=== PATIENT | male | born 1995 | race Caucasian/White ===

== ENCOUNTER 2024-12-09 11:54 | Emergency (ER) | payer SELFPAY ==
[2024-12-09 12:00] VITALS: BP 164/113
[2024-12-09 12:26] VITALS: BMI 33.8
[2024-12-09 12:31] LABS: Hematocrit 45.5 % (39.0-52.0); Hemoglobin 15.7 g/dL (13.0-18.0); Mean Corp Hgb Conc. 34.5 g/dL (33.0-37.0); Mean Corpuscular Volume 83.9 fL (80.0-94.0); Nucleated Red Blood Cells % 0 % (-); Platelet Count 223 10^3/uL (130-400); Red Cell Dist. Width 13.0 % (11.5-14.5)
[2024-12-09 13:00] VITALS: BP 145/87
[2024-12-09 13:41] LABS: Blood Urea Nitrogen 17 mg/dl (9-20); Calcium 8.8 mg/dl (8.4-10.2); Carbon Dioxide 27 mmol/L (22-30); Chloride 107 mmol/L (98-107); Estimated Creatinine Clearance > 125 ml/min; Glucose 88 mg/dl (70-99); Sodium 138 mmol/L (135-145); eGFR > 60.00
[2024-12-09 13:48] LABS: Troponin I < 0.012 ng/ml
[2024-12-09 13:55] LABS: D-Dimer 0.34 ug/mlFEU (0.00-0.50)
--- NOTE | 2024-12-09 14:36 | ED.GENMED ---
History of Present Illness
General
Chief Complaint: Chest Pain
Time Seen by Provider: 12/09/24 12:34
History of Present Illness
History of Present Illness:
SEE mdm
Phy Exam
Physical Exam
Physical Exam:
see MDM
Scores
Heart Score for Chest Pain Patients
STEMI patient?: No
History: Slightly or Non-Suspicious
ECG: Normal (NSR no st elevation/depression, no t wave inv)
Age: </= 45 years
Risk Factors: No Risk Factors
Troponin: </= Normal Limit
Heart Score for Chest Pain Patients: 0
Heart Score Risk: 2.5% MACE over next 6 weeks
Course
Orders/Labs/Results
Orders:
Orders
12/09/24 11:55
Electrocardiogram (*1) Urgent
Reason for Study: Chest Pain
EKG- Treatment ONCE
12/09/24 12:01
CR Chest - 2 Views Urgent
Comment:
Reason For Exam: cough
12/09/24 12:24
IV Insert/Care/Rem.- Treatment PRN
Pulse Ox/spot Check [RESP] Urgent
Quantity: 1
Special Instructions: ON ROOM AIR
12/09/24 12:25
Complete Blood Count/With Diff Urgent
12/09/24 13:15
Basic Metabolic Panel Urgent
Troponin I Urgent
12/09/24 13:35
D-Dimer Urgent
Abnormal Lab Results
12/09/24
12:25
Immature Gran % 0.6 H %
(0-0.5)
12/09/24 12:25
12/09/24 13:15
Vital Signs
Initial and Last Documented VS:
Initial Vital Signs
Temp Pulse Resp BP Pulse Ox
36.5 C 99 17 164/113 99
12/09/24 12:00 12/09/24 12:00 12/09/24 12:00 12/09/24 12:00 12/09/24 12:00
Last Documented Vital Signs
Temp Pulse Resp BP Pulse Ox
36.5 C 103 21 145/87 99
12/09/24 12:00 12/09/24 14:00 12/09/24 14:00 12/09/24 13:00 12/09/24 12:00
MDM/Problems Addressed
Differential Diagnosis Includes:
see MDM
MDM/Problems Addressed:
Note:
CHIEF COMPLAINT(S)
Chest pain and associated symptoms.
HISTORY OF PRESENT ILLNESS
The patient is a 29-year-old male who presents with chest pain persisting daily for the past three to four weeks. He describes the pain as sharp, sometimes located on the left side, and occasionally accompanied by a sensation of palpitations. He
also reported experiencing shortness of breath, particularly noticeable the previous night. The chest pain does not appear to be related to specific activities but is described as uncomfortable and worrisome. Additionally, the patient mentions pain
radiating down his arms occasionally. He reports a history of yellow sputum production and a chronic cough. Activities such as deep breathing do seem to exacerbate the pain. He denies recent long-duration travel or flights. His family history is
non-contributory for heart disease.
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 He consumes alcohol only on weekends and denies smoking cigarettes, vaping, marijuana, or cocaine use. Despite not currently
presenting symptoms suggestive of a heart attack or pulmonary embolism, he expresses concern due to the prolonged nature of his symptoms, prompting his visit for evaluation and reassurance.
PAST MEDICAL AND SURIGICAL HISTORY
None documented in the conversation.
CHRONIC MEDICAL CONDITIONS SIGNIFICANTLY AFFECTING CARE
None documented in the conversation.
SOCIAL DETERMINANTS AFFECTING HEALTH
The patient reports engaging in stressful work situations but does not directly attribute his symptoms to stress.
REVIEW OF SYSTEMS
- Cardiovascular: Chest pain described as sharp, sensation of palpitations, arm pain.
- Respiratory: Shortness of breath, chronic cough with yellow sputum.
- Gastrointestinal: The potential mention of acid reflux but unclear correlation to symptoms.
PHYSICAL EXAM
Nursing notes reviewed and vital signs reviewed.
GENERAL: Alert , in no apparent distress, comfortable
EYE: pupils equal and reactive
NECK: Supple
ENT: o/p clr, mmm.
CARDIAC: Regular rate and rhythm .
No chest wall tenderness
LUNGS: Clear breath sounds bilaterally, no acute respiratory distress, no wheezes/rales/rhonchi
ABDOMEN: Soft, without focal tenderness, no r/g, no cvat, normal bowel sounds
NEUROLOGICAL: Alert and oriented, no focal neuro deficits
SKIN: Warm and dry, skin intact.
MUSCULOSKELETAL: No edema, well perfused. neg harley's sign
PSYCH: Normal and appropriate interaction.
PROBLEM LIST
- Acute chest pain
- Chronic cough
PLAN
- Blood work to rule out cardiovascular risk or heart-related causes.
- Await results for any indications of blood clot risk.
- Educate the patient on possible non-emergent causes of symptoms such as acid reflux or muscular causes.
- Provide considerable reassurance following the initial workup with normal findings indicating low risk for immediate cardiac events or pulmonary issues.
DIFFERENTIAL DIAGNOSIS
The Differential Diagnosis includes, in no particular order and is not limited to:
1. Musculoskeletal chest pain
2. Gastroesophageal reflux disease (GERD)
3. Anxiety-related chest discomfort
4. Costochondritis
5. Pericarditis
6. Pleuritis
7. Pulmonary embolism
8. Pneumonia
9. Cardiac ischemia
10. Myocardial infarction (low probability given initial normal studies)
CARE-UPDATE
12/09/24 - 14:34
Patients blood work and chest X-ray independently reviewed by me are normal, ruling out liver, heart, and blood clot issues. Although the cause of chest pain remains undetermined, a trial of acid reflux treatment with Pantoprazole 20 mg in the
morning on an empty stomach is recommended. Blood pressure readings were noted at 145/87 and 152/83, indicating mild hypertension, and lifestyle modifications, including improved diet, increased exercise, and reduced alcohol and caffeine intake, are
advised. A cardiology referral is offered for further outpatient evaluation.
*Pulse Oximetry
SaO2: 99
Oxygen Mode of Delivery: Room air
Patient hypoxic: no (99)
*Critical Care Note
Total Time (30-74mins, 75-104mins- exclusive of procedures): Not Applicable
ED Attending Note
-
Portions of this chart may have been created with voice recognition software.� Occasional wrong word or��sound alike� substitutions may have occurred due to the inherent limitations of voice recognition software.
Discharge Plan
Departure
Patient Disposition: Home (Routine Discharge)
Date of Disposition: 12/09/24
Time of Disposition: 14:32
Patient with high blood pressure during this ER visit?: Yes
Condition: Fair
Covid-19: Not Applicable
Discharge Problem:
Chest pain, Elevated blood pressure reading
Instructions: Acid Reflux and GERD in Adults (DC), Chest Pain PCP Follow Up, BLOOD PRESSURE
Prescriptions:
New
pantoprazole [Protonix] 20 mg tablet,delayed release (DR/EC)
20 mg PO DAILY Qty: 14 0RF
Referrals:
NONE,* [Family Provider, Internal Medicine]
Toney Tovar MD [Active, Cardiology] - Follow up in 10 days
Activity Restrictions/Additional Instructions:
I think your symptoms are due to acid reflux. Try Protonix 20 mg in the morning with water before eating and wait 45 minutes before you eat or drink anything.
Your blood pressure was also elevated. Please try to apply diet modification and light exercise to see if you can help bring this down. Please follow-up with your doctor. You can also see a real estate agent/broker in follow-up. Return to the ER for any
concerns like worsening chest pain or shortness of breath, severe headache etc.
Interventions
Interventions:
*Risk Screen - Suicide Last Done: 12/09/24 12:01
*General Assessment Last Done: 12/09/24 12:01
*Neglect/Abuse Screening Last Done: 12/09/24 12:01
*ED COVID-19 Vaccine History Last Done: 12/09/24 12:01
*ED Influenza Vaccine History Last Done: 12/09/24 12:01
*Nursing Disposition Last Done: 12/09/24 14:55
ED- Cardiac Assessment Last Done: 12/09/24 12:38
Discharge Date and Time
Discharge Date/Time: 12/09/24 14:56
Print Language: IRISH
== END 2024-12-09 14:56 | disposition home or self-care (01) ==
LOC: EMR 11:54
PROVIDERS: EMERGENCY PHYSICIAN Emergency Medicine
DX: R07.9 Chest pain, unspecified (principal); R03.0 Elevated blood-pressure reading, without diagnosis of hypertension; R05.3 Chronic cough
CPT/HCPCS: 99284; 71046; 80048; 84484; 85025; 85379; 93005

== ENCOUNTER 2024-12-21 12:02 | Emergency (ER) | payer SELFPAY ==
[2024-12-21 12:08] VITALS: BP 174/104
[2024-12-21 12:30] LABS: Hematocrit 44.7 % (39.0-52.0); Hemoglobin 15.4 g/dL (13.0-18.0); Mean Corp Hgb Conc. 34.5 g/dL (33.0-37.0); Mean Corpuscular Volume 85.1 fL (80.0-94.0); Nucleated Red Blood Cells % 0 % (-); Platelet Count 213 10^3/uL (130-400); Red Cell Dist. Width 13.3 % (11.5-14.5)
[2024-12-21 12:44] LABS: INR 0.98; PT 13.3 Sec (11.4-14.6)
[2024-12-21 12:53] LABS: ALT (SGPT) 43 U/L (0-50); AST (SGOT) 22 U/L (17-59); Albumin 4.8 g/dl (3.5-5.0); Alkaline Phosphatase 52 U/L (38-126); Blood Urea Nitrogen 16 mg/dl (9-20); Calcium 9.5 mg/dl (8.4-10.2); Carbon Dioxide 29 mmol/L (22-30); Chloride 106 mmol/L (98-107); Glucose 97 mg/dl (70-99); Potassium 4.6 mmol/L (3.5-5.1); Sodium 138 mmol/L (135-145); Total Protein 7.7 g/dl (6.3-8.2); eGFR > 60.00
[2024-12-21 12:59] LABS: Troponin I < 0.012 ng/ml
--- NOTE | 2024-12-21 15:46 | ED.GENMED ---
History of Present Illness
General
Chief Complaint: Chest Pain
Time Seen by Provider: 12/21/24 14:46
History of Present Illness
History of Present Illness:
29-year-old male without significant past medical history presenting for chest wall pain. Patient reports symptoms for the past 5 to 6 weeks. Denies inciting injury or trauma or event. Was seen in the hospital on 12/09 with unremarkable workup.
Denies any known cardiac history. Pain is described as a stabbing pain, all across his chest. He reports the pain is chronic. Does note that he started to have a cough before the symptoms and cough has been persistent. Denies any fever. Denies
any difficulty breathing. Denies a history of blood clot. Patient was recommended to follow-up with cardiology after prior visit, has not yet made an appointment. Denies additional acute medical complaints.
Phy Exam
Physical Exam
Physical Exam:
General: Well-appearing, no clinical signs of dehydration, nontoxic and in no acute distress
HEENT: protecting airway
Neck: appears supple
CV: Normal heart rate, regular rhythm
Resp: No accessory muscle use, no increased work of breathing, lungs clear to auscultation bilaterally
Abd: Noticed
Extremities: No deformities, no swelling
Neuro: alert, no focal neurologic deficit
: deferred
Rectal: deferred
Psych: Normal affect
Skin: Intact
Scores
Heart Score for Chest Pain Patients
STEMI patient?: No
History: Slightly or Non-Suspicious
ECG: Normal
Age: </= 45 years
Risk Factors: No Risk Factors
Troponin: </= Normal Limit
Heart Score for Chest Pain Patients: 0
Heart Score Risk: 2.5% MACE over next 6 weeks
Course
Orders/Labs/Results
Orders:
Orders
12/21/24 12:02
Electrocardiogram (*1) Urgent
Reason for Study: Chest Pain
12/21/24 12:03
EKG- Treatment ONCE
12/21/24 12:09
CR Chest - 2 Views Urgent
Comment:
Reason For Exam: chest pain
12/21/24 12:21
Complete Blood Count/With Diff Urgent
Comprehensive Metabolic Panel Urgent
Prothrombin Time Urgent
Troponin I Urgent
Abnormal Lab Results
12/21/24
12:21
Abs Immat Gran (auto) 0.1 H 10^3/uL
(0-0.05)
Immature Gran % 0.8 H %
(0-0.5)
12/21/24 12:21
12/21/24 12:21
Vital Signs
Initial and Last Documented VS:
Initial Vital Signs
Temp Pulse Resp BP Pulse Ox
98.8 F 104 17 174/104 96
12/21/24 12:08 12/21/24 12:08 12/21/24 12:08 12/21/24 12:08 12/21/24 12:08
Last Documented Vital Signs
Temp Pulse Resp BP Pulse Ox
98.8 F 104 17 174/104 96
12/21/24 12:08 12/21/24 12:08 12/21/24 12:08 12/21/24 12:08 12/21/24 15:47
MDM/Problems Addressed
MDM/Problems Addressed:
29-year-old male without significant past medical history presenting for chest wall pain for the past 5 to 6 weeks. Vital signs are significant for hypertension which improved without intervention. Patient also initially tachycardic, which also
resolved.
On exam patient is resting comfortably, no acute distress or discomfort. Unremarkable cardiac and pulmonary exam. EKG obtained prior to my assessment, unremarkable, prior. Without present concern for ACS. No significant risk factors, again
nonischemic EKG. Patient PERC negative with normalized heart rate. In addition, on 12/09, D-dimer sent which was normal. No indication for repeat. No present hypoxia, no respiratory symptoms. Suspect possible musculoskeletal component versus
bronchitis component. Patient reports that symptoms started after coughing. Labs obtained prior to my assessment, unremarkable troponin. Low risk by heart score. Will trial steroid pack in the setting of bronchitis and inflammation. Otherwise
feel stable for discharge and outpatient cardiac follow-up. Return precautions discussed and patient verbalized
*Pulse Oximetry
SaO2: 96
Oxygen Mode of Delivery: Room air
Patient hypoxic: no
*EKG
Interpreted by ED Provider?: Yes
EKG Intrepretation Date: 12/21/24
EKG Intrepretation Time: 15:49
Interpretation: normal
Comparison EKG: no changes (12/09/24)
Heart Rate: 89
Rate: normal
Rhythm: sinus
[place]: normal axis
Interval: normal interval
QRS Pattern: normal QRS
Ischemia: no ischemia
*Critical Care Note
Total Time (30-74mins, 75-104mins- exclusive of procedures): Not Applicable
ED Attending Note
-
Portions of this chart may have been created with voice recognition software.� Occasional wrong word or��sound alike� substitutions may have occurred due to the inherent limitations of voice recognition software.
Discharge Plan
Departure
Prescriptions:
No Action
pantoprazole [Protonix] 20 mg tablet,delayed release (DR/EC)
20 mg PO DAILY Qty: 14 0RF
Referrals:
NONE,* [Family Provider, Internal Medicine]
Interventions
Interventions:
*Risk Screen - Suicide Last Done: 12/21/24 12:06
*General Assessment Last Done: 12/21/24 12:06
*Neglect/Abuse Screening Last Done: 12/21/24 12:06
*ED COVID-19 Vaccine History Last Done: 12/21/24 12:06
*ED Influenza Vaccine History Last Done: 12/21/24 12:06
Discharge Date and Time
Print Language: ISRAELI
[2024-12-21 16:02] VITALS: BP 131/82; BMI 24.3
[2024-12-21 16:06] VITALS: BP 128/79
== END 2024-12-21 16:06 | disposition home or self-care (01) ==
LOC: EMR 12:02
PROVIDERS: Emergency Medicine; EMERGENCY PHYSICIAN Student in an Organized Health Care Education/Training Program
DX: R07.9 Chest pain, unspecified (principal); G89.29 Other chronic pain; I10 Essential (primary) hypertension; R00.0 Tachycardia, unspecified
CPT/HCPCS: 99284; 71046; 80053; 84484; 85025; 85610; 93005